=== PATIENT | male | born 1980 | race Caucasian/White ===

== ENCOUNTER → 2021-01-09 08:54 | Outpatient (CLI) | payer OTHER, SELFPAY ==
--- NOTE | 2021-01-09 08:55 | US_ITS ---
PROCEDURE: US GALLBLADDER CLINICAL INDICATION: RUQ Pain COMPARISON: No exams were available for comparison FINDINGS: Pancreas: Tail the pancreas is not well visualized due to overlying bowel gas. The body and head of the pancreas have an unremarkable appearance. Liver: Unremarkable. There is appropriate direction of blood flow within a non dilated portal vein. Right kidney: Unremarkable appearing. No hydronephrosis. Gallbladder: No stones are evident. There is no gallbladder wall thickening. Common duct is normal in diameter. IMPRESSION: Negative gallbladder ultrasound. No stones evident. Dictated by: Xavier Chacon MD 01/09/2021 10:04 Xavier Chacon MD in [facility] 01/09/2021 10:04
== END ==
PROVIDERS: PCP Nurse Practitioner Family; Visit Provider Nurse Practitioner Family
DX: R10.11 Right upper quadrant pain (principal)
CPT/HCPCS: 76705

== ENCOUNTER 2021-01-18 16:48 | Emergency (ER) | payer OTHER, SELFPAY ==
[2021-01-18] VITALS (9 sets, daily range): BP systolic 87–125; BP diastolic 45–74; PULSE 53–75; RESP 16–18; TEMP 36.5; O2SAT 92–100; BMI 20.3
[2021-01-18 17:07] LABS: Basophils % 0.3 % (0.1-2.0); Eosinophils # 0.1 K/mm3 (0.0-0.4); Eosinophils % 0.4 % (0.1-12.0); Hematocrit 44.4 % (42.0-52.0); Hemoglobin 15.1 g/dL (14.1-18.0); Lymphocytes # 0.9 K/mm3 (0.7-4.5); Lymphocytes % 8.7 % (10-50); Mean Corpuscular HGB Conc 34.1 g/dL (31.8-35.4); Monocytes # 0.4 K/mm3 (0.1-1.0); Monocytes % 4.1 % (1.7-9.3); Neutrophils # 9.3 K/mm3 (1.8-7.8); Neutrophils % 86.5 % (37.0-80.0); Platelet Count 153 K/mm3 (142-424); Red Blood Count 4.88 M/mm3 (4.60-6.20); Red Cell Distribution Width 13.4 % (11.5-17.5); White Blood Count 10.7 K/mm3 (4.8-10.8)
[2021-01-18 17:12] LABS: MANUAL DIFFERENTIAL MANUAL DIFFERENTIAL (MANUAL DIFF)
[2021-01-18 17:14] LABS: Chloride 107 mmol/L (98-107); Potassium 3.7 mmoL/L (3.5-5.1); Sodium 143 mmol/L (136-145)
[2021-01-18 17:17] LABS: Alanine Aminotransferase 15 U/L (12-78); Albumin Level 4.7 g/dl (3.5-5.0); Albumin/Globulin Ratio 1.6 (1.1-1.8); Alkaline Phosphatase 84 U/L (38-126); Anion Gap 10.7 mEq/L (5-15); Aspartate Amino Transferase 24 U/L (17-59); Bilirubin,Total 1.2 mg/dl (0.2-1.3); Blood Urea Nitrogen 15 mg/dl (9-20); Calcium 8.9 mg/dl (8.4-10.2); Carbon Dioxide 29 mmol/L (22.0-30.0); Creatinine Clearance Estimated 105 mL/min (50-200); Estimated Glomerular Filt Rate 93 ml/min (>60); GFR (African American) 113 ML/MIN (>60); Globulin 2.9 g/dL (1.3-3.2); Glucose 112 mg/dl (74-100); Total Protein,Serum 7.6 g/dl (6.3-8.2)
[2021-01-18 17:23] LABS: Lymphocytes % 12 % (10-50); Monocytes % 2 % (2-9); Neutrophils % 86 % (42-76); Platelet Estimate Normal; RBC Morphology Normal; Total Cells Counted 100
[2021-01-18 17:28] LABS: Lipase 45 U/L (23-300)
--- NOTE | 2021-01-18 17:35 | [facility].EDABDPAI ---
ED Disposition Clinical Impression: Dyspepsia Cholelithiases Qualifiers: Cholelithiasis location: gallbladder Cholecystitis presence: without cholecystitis Biliary obstruction: without biliary obstruction Qualified Code(s): K80.20 - Calculus of gallbladder without cholecystitis without obstruction Disposition: Home, Self-Care Condition on Discharge: Good Instructions: DI for Acute Abdominal Pain Referrals: David Swan MD [Primary Care Provider] - - Critical Care Critical Care Time: No Attestation: On 01/18/21, the high probability of a clinically significant, sudden or life threatening deterioration of the following system(s) required my full and direct attention, intervention and personal management. The time I documented below is in addition to time spent performing reported procedures but includes the following listed in this critical care notation. Medical Decision Making - Medical Records Medical records reviewed: Yes: I reviewed the patient's medical records. - Crispin Inquiry Pt receiving controlled substance: No Vital Signs: 01/18/21 16:50 01/18/21 16:57 01/18/21 17:01 Temperature 97.7 F Temperature Source Oral Pulse Rate 61 74 Pulse Rate [Right] 75 Respiratory Rate 16 Blood Pressure 125/74 117/61 Blood Pressure [Right Arm] 125/74 Blood Pressure Mean 87 79 Blood Pressure Mean [Right Arm] 91 02 Sat by Pulse Oximetry 100 100 99 Oxygen Delivery Method Room Air 01/18/21 17:31 01/18/21 18:01 01/18/21 18:10 Temperature Temperature Source Pulse Rate 56 L 60 Pulse Rate [Right] Respiratory Rate 18 Blood Pressure 92/45 L 110/64 Blood Pressure [Right Arm] Blood Pressure Mean 64 75 74 Blood Pressure Mean [Right Arm] 02 Sat by Pulse Oximetry 100 99 Oxygen Delivery Method 01/18/21 18:24 01/18/21 18:30 01/18/21 18:48 Temperature Temperature Source Pulse Rate 74 53 L 64 Pulse Rate [Right] Respiratory Rate 16 Blood Pressure 87/47 L 105/52 L Blood Pressure [Right Arm] Blood Pressure Mean 60 Blood Pressure Mean [Right Arm] 02 Sat by Pulse Oximetry 92 L 100 99 Oxygen Delivery Method Room Air - Lab Data Lab Results 01/18/21 17:00: WBC 10.7, RBC 4.88, Hgb 15.1, Hct 44.4, MCV 91.0, MCH 31.0, MCHC 34.1, RDW 13.4, Plt Count 153, MPV 9.0, Neut % (Auto) 86.5 H, Lymph % (Auto) 8.7 L, Millard % (Auto) 4.1, Eos % (Auto) 0.4, Baso % (Auto) 0.3, Neut # (Auto) 9.3 H, Lymph # (Auto) 0.9, Millard # (Auto) 0.4, Eos # (Auto) 0.1, Baso # (Auto) 0.0, Total Counted 100, Neutrophils % (Manual) 86 H, Lymphocytes % (Manual) 12, Monocytes % (Manual) 2, Platelet Estimate Normal, RBC Morphology Normal 01/18/21 17:00: Sodium 143, Potassium 3.7, Chloride 107, Carbon Dioxide 29, Anion Gap 10.7, BUN 15, Creatinine 0.90, Estimated Creat Clear 105, Estimated GFR 93, Est GFR ( Amer) 113, Glucose 112 H, Calcium 8.9, Total Bilirubin 1.2, AST 24, ALT 15, Alkaline Phosphatase 84, Total Protein 7.6, Albumin 4.7, Globulin 2.9, Albumin/Globulin Ratio 1.6 01/18/21 17:06: Lipase 45 Result diagrams: 01/18/21 17:00 01/18/21 17:00 Orders (Tests/Meds): ED MEDICATIONS Generic Name Dose Route Start Last Admin Trade Name Freq PRN Reason Stop Dose Admin Sodium Chloride 1,000 mls @ 999 mls/hr 01/18/21 17:15 01/18/21 17:05 Sod Chlor 0.9% 1000ml Bag IV 01/18/21 18:15 999 mls/hr .[id number] GUSTAVO Administration Discontinued Medications Generic Name Dose Route Start Last Admin Trade Name Freq PRN Reason Stop Dose Admin Iopamidol 75 ml 01/18/21 18:23 01/18/21 18:24 Iopamidol-370 (76%);100ml Bottle IV 01/18/21 18:24 75 ml ONCE ONE Administration Ketorolac Tromethamine 30 mg 01/18/21 17:03 01/18/21 17:04 Ketorolac 30mg/Ml Vial IV 01/18/21 17:04 30 mg ONCE ONE Administration Ondansetron HCl 4 mg 01/18/21 17:03 01/18/21 17:04 Ondansetron 4mg/2ml Vial IV 01/18/21 17:04 4 mg ONCE ONE Administration Promethazine HCl 25 mg
--- NOTE | 2021-01-18 18:07 | CT_ITS ---
PROCEDURE INFORMATION: Exam: CT Abdomen And Pelvis With Contrast Exam date and time: 01/18/2021 6:07 PM Age: 40 years old Clinical indication: Vomiting and other: Diarrhea; Abdominal pain; Generalized; Prior surgery; Surgery date: 6+ months; Surgery type: Appendectomy TECHNIQUE: Imaging protocol: Computed tomography of the abdomen and pelvis with contrast. Radiation optimization: All CT scans at this facility use at least one of these dose optimization techniques: automated exposure control; mA and/or kV adjustment per patient size (includes targeted exams where dose is matched to clinical indication); or iterative reconstruction. Contrast material: ISOVUE; Contrast volume: 75 ml; Contrast route: IV; COMPARISON: US GALLBLADDER 01/09/2021 9:22 AM FINDINGS: Lungs: Mild interstitial scarring or subsegmental atelectasis in the visualized posterior lower right lung. No focal consolidation. Liver: Calcified hepatic granulomas. No hepatomegaly. No suspicious mass. Gallbladder and bile ducts: The gallbladder is unremarkable. No calcified stones or biliary dilatation. Pancreas: The pancreas is normal. Spleen: No splenomegaly. Multiple calcified granulomas. Adrenal glands: The adrenal glands are normal. Kidneys and ureters: The kidneys are normal. The ureters are normal. Stomach and bowel: There is no evidence of intestinal perforation or obstruction. No bowel dilatation. No significant mucosal thickening. The stomach is normal. Appendix: Post appendectomy. Intraperitoneal space: There is no free intraperitoneal air. There is no significant free intraperitoneal fluid. Vasculature: There is no aortic aneurysm. No portal venous gas. Multiple calcified phleboliths in the pelvis. Lymph nodes: No significantly enlarged lymph nodes by short axis criteria. Urinary bladder: The bladder is normal. Reproductive: Multiple prostate calcifications, heterogeneous prostate. No significant enlargement. Seminal vesicles are unremarkable. Bones/joints: There is no evidence of acute fracture. Soft tissues: There are no soft tissue masses or fluid collections. IMPRESSION: 1. No acute findings. 2. There is no evidence of intestinal perforation or obstruction. 3. Chronic granulomatous changes. 4. Additional nonemergency and chronic findings as above.
--- NOTE | 2021-01-18 18:10 | PC.NURSE ---
Pt unable to give urine sample at this time, pt informed of need & urinal at bedside.
--- NOTE | 2021-01-18 18:12 | PC.NURSE ---
Pt to CT scanner via wheelchair at this time.
--- NOTE | 2021-01-18 18:30 | PC.NURSE ---
BP 87/47 charted in error, pt laying on right side cuff on left arm.
== END 2021-01-18 20:03 | disposition home or self-care (01) ==
PROVIDERS: Emergency Provider Emergency Medicine; PCP Emergency Medicine
DX: K80.20 Calculus of gallbladder without cholecystitis without obstruction (principal); Z88.5 Allergy status to narcotic agent; F17.210 Nicotine dependence, cigarettes, uncomplicated
CPT/HCPCS: 74177; 80053; 83690; 85007; 85025; 96365; 96375; 99283; J2405; Q9967